=== PATIENT | female | born 1950 | race Caucasian/White ===

== ENCOUNTER 2022-09-14 11:56 | Outpatient (CLI) | payer MEDICARE, BC ==
--- NOTE | 2022-09-14 13:28 | XRAY Report ---
PROCEDURE: Chest 2 View X-Ray INDICATIONS: LUNG CA TECHNIQUE: 2 views of the chest were acquired. COMPARISON: None. FINDINGS: Surgical changes and devices: None. Lungs and pleura: Moderate effusion. Patchy opacities are noted in the right upper lobe. Left lung is clear. Mediastinum: Mediastinal contours are normal. Heart size is normal. Bones and chest wall: No suspicious bony abnormalities. Soft tissues appear unremarkable. IMPRESSION: Moderate right effusion with patchy upper lobe opacities. Underlying mass cannot be excluded recommen d interval follow-up after resolution of effusion. Reviewed by: Josselyn Ramos MD on 09/14/2022 1:26 PM PDT Approved by: Josselyn Ramos MD on 09/14/2022 1:26 PM PDT Station ID: [id number]
== END 2022-09-14 11:57 | disposition home or self-care (01) ==
LOC: DI 11:56
PROVIDERS: ATTEND Physician Assistant Medical
DX: C21.1 Malignant neoplasm of anal canal (principal); C78.01 Secondary malignant neoplasm of right lung; G89.3 Neoplasm related pain (acute) (chronic); J90 Pleural effusion, not elsewhere classified

== ENCOUNTER 2022-10-22 14:29 | Emergency (ER) | payer MEDICARE, BC ==
[2022-10-22] MEDS ORDERED: ONDANSETRON 4 MG/2 ML VIAL IVP STA ×2 (14:56→17:31)
[2022-10-22] MEDS ORDERED: HYDROmorphone 1 MG/ML CARPUJECT IVP STA ×2 (14:56→17:31)
[2022-10-22] MEDS ORDERED: SODIUM CHLORIDE 0.9% 1,000 ML IV STA (14:56)
--- NOTE | 2022-10-22 15:15 | ED Physician Documentation ---
History of Present Illness - Stated complaint Stated Complaint: VOMITING, LOWER RT ABD PX - Chief complaint Chief Complaint: General - History obtained from History obtained from: Patient - Additonal information Additional information: Patient is a 71-year-old female with a Metastatic rectal cancer presenting for evaluation of worsening right-sided chest pain radiating to the back for the past 2 weeks along with continued nausea and vomiting which have also been for the past 2 weeks. She recently completed one round of radiation therapy which helped her with pain for 2 days but the pain has again returned. She is followed through [facility] for her oncology care.She was seen by the palliative team yesterday but due to feeling too weak she was not actually able to complete that appointment and she was sent to the clinic for IV fluids, antiemetics and pain control.She has been prescribed hydromorphone, tramadol as well as Zofran and Compazine. She tried taking 2 doses of her Compazine today but vomited both of those up.She did not try taking her Zofran. She reports continued feelings of shortness of breath which been ongoing for the past 6 to 8 weeks and unchanged. She is intermittently having thoracentesis with the last one was 3 weeks ago. She has not had a bowel movement in 3 weeks. She has an ostomy.She denies abdominal pain.She was started on MiraLAX by the palliative team yesterday.She has not required any recent blood transfusions. Review of Systems Constitutional: denies: Fever Cardiac: reports: Chest pain / pressure (R sided) Respiratory: reports: Dyspnea GI: reports: Nausea, Vomiting. denies: Abdominal Pain, Diarrhea : denies: Dysuria Neurologic: reports: Generalized weakness PD PAST MEDICAL HISTORY - Past Medical History Past Medical History: Yes Cardiovascular: None Respiratory: Other Neuro: None Endocrine/Autoimmune: HyPOthyroidism GI: Other [employer]ING [employer]PER[employer]: None : None HEENT: None Psych: None Musculoskeletal: None Derm: None Other Past Medical History: anal cancer w/mets to lungs. ileostomy - Past Surgical History Past Surgical History: Yes General: Other Ortho: Other /FLANGING [employer] OPERATOR: Hysterectomy - Present Medications Home Medications: Ambulatory Orders Medication Instructions Recorded Confirmed Amox/Clav 875/125 [Augmentin] 1 each PO Q12H #14 tablet 10/22/22 Azithromycin [Zithromax] 1 tab PO DAILY #6 tablet 10/22/22 HYDROcod/ACETAM 5/325 [Kite 5/325] 1 tab PO Q4HR PRN 10/22/22 10/22/22 HYDROmorphone [Dilaudid] 2 mg PO Q4H 10/22/22 10/22/22 LORazepam [Ativan] 0.5 mg PO BID 10/22/22 10/22/22 Levothyroxine Sodium 75 mcg PO DAILY 10/22/22 10/22/22 [Levothyroxine] Ondansetron Odt [Zofran Odt] 4 mg TL Q6H PRN 10/22/22 10/22/22 Prochlorperazine [Compazine] 5 mg PO Q6H 10/22/22 10/22/22 Tolterodine [Detrol LA] 2 mg PO BID 10/22/22 10/22/22 Tramadol HCl 50 mg PO Q4HR PRN 10/22/22 10/22/22 - Allergies Allergies/Adverse Reactions: Allergies Allergy/AdvReac Type Severity Reaction Status Date / Time codeine AdvReac Unknown Verified 10/22/22 14:42 - Social History Does the pt smoke?: No Smoking Status: Never smoker Does the pt drink ETOH?: No Does the pt have substance abuse?: No - Immunizations Immunizations are current?: Yes - POLST Patient has POLST: No PD ED PE NORMAL - General General: Alert and oriented X 3, No acute distress, Well developed/nourished - HEENT HEENT: Atraumatic - Neck Neck: Supple, no meningeal sign - Cardiac Cardiac: No murmur, Other - Respiratory Respiratory: No respiratory distress (Tachycardic, regular rhythm), Other (Diminished breath sounds on the right) - Abdomen Abdomen: Normal bowel sounds, Soft, Non tender, Non distended, Other (Ostomy on the mid left abdomen) - Derm Derm: Warm and dry - Extremities Extremities: No edema - Neuro Neuro: Normal speech Results - Vitals Vitals: Vital Signs - 24 hr 10/22/22 10/22/22 10/22/22 14:30 16:41 18:00 Temperature 37.1 C Heart Rate 125 H 104 H 104 H Respiratory 19 23 18 Rate Blood Pressure 115/86 H 135/77 H 134/68 H O2 Saturation 97 98 94 10/22/22 19:51 Temperature 36.9 C Heart Rate 107 H Respiratory 22 Rate Blood Pressure 134/65 H O2 Saturation 95 Oxygen O2 Source Room air - EKG (time done) 1523 EKG releavant findings:: EKG personally interpreted by author of this note. Relevant findings are: Rate 109, sinus tachycardia, QTc 429, no STEMI Rate: Rate (enter#) (109) Rhythm: Sinus tachycardia Intervals: No: Prolonged QT Ischemia: No: ST elevation c/w ischemia Compare to prior EKG: Old EKG unavailable - Labs Labs: Laboratory Tests 10/22/22 10/22/22 10/22/22 15:20 15:20 15:20 WBC 9.6 RBC 3.04 L Hgb 7.9 L Hct 24.3 L MCV 79.9 L MCH 26.0 L MCHC 32.5 RDW 17.1 H Plt Count 415 MPV 9.9 Neut # (Auto) 7.9 H Lymph # (Auto) 0.6 L Pinal # (Auto) 1.0 Eos # (Auto) 0.0 Baso # (Auto) 0.0 Absolute Nucleated RBC 0.00 Nucleated RBC % 0.0 PT 15.0 H INR 1.4 H Sodium 134 L Potassium 3.8 Chloride 98 L Carbon Dioxide 25 Anion Gap 11.0 BUN 17 Creatinine 0.8 Estimated GFR (MDRD) 71 L Glucose 118 H Calcium 9.4 Ferritin Total Bilirubin 0.6 AST 26 ALT 43 Alkaline Phosphatase 55 Total Protein 7.3 Albumin 2.6 L Globulin 4.7 H Albumin/Globulin Ratio 0.6 L Lipase 25 10/22/22 15:20 WBC RBC Hgb Hct MCV MCH MCHC RDW Plt Count MPV Neut # (Auto) Lymph # (Auto) Pinal # (Auto) Eos # (Auto) Baso # (Auto) Absolute Nucleated RBC Nucleated RBC % PT INR Sodium Potassium Chloride Carbon Dioxide Anion Gap BUN Creatinine Estimated GFR (MDRD) Glucose Calcium Ferritin 546.4 H Total Bilirubin AST ALT Alkaline Phosphatase Total Protein Albumin Globulin Albumin/Globulin Ratio Lipase PD Medical Decision Making - ED course Complexity details: reviewed results, re-evaluated patient, d/w patient, d/w family ED course: 1623 D/W Patient's oncologist, Dr. Pinto. She is very familiar with the patient. Reviewed evaluation today and she was able to see the chest x-ray which we had beamed over to the the [facility]. She is concerned that the opacification could be a mass and is recommending a CT chest without contrast (as patient has a contrast allergy). I also discussed her hemoglobin of 7.9 and how it has been downtrending since July on review of her outpatient records. She recommends adding on a ferritin level. She will follow-up with this level.She understands that we will have the images of the CT scan sent over to her and she plans to follow-up on this with the patient tomorrow. She will have close follow-up with her. She does not feel her sympto ms are infection in etiology. Pt is a 71 yo with metastatic rectal cancer presenting with generalized weakness, N/V, pain, SOA x weeks. She has been seen by her outpatient oncologist for these symptoms and also seen yesterday at [facility] for these symptoms. She is tachycardic but otherwise stable vital signs. Her abdominal exam is soft, nontender, non distended. She has not had much stool output recently and was started on miralax yesterday but her abdominal exam remained benign without signs of SBO. She has been prescribed pain and nausea medication as an outpatient but still has ongoing N/V. CBC and Chemistries obtained and reviewed. Pt is anemic. (Hgb yesterday 8.2, 9.6 in September, normal in Jul 2022). Pt denied blood/dark appearance in stools. Reviewed with her oncologist who will follow up. Chest XR obtained due to ongoing SOA which I reviewed and see a new opacification on the right not seen on prior XR here from September 2022. Also D/W with her oncologist who requested CT chest which was obtained and shows a fluid collection (6x6x7 cm) and opacities suggestive of pneumonia. Reviewed these findings with pt. SHe wanted to wait on starting antibiotics so Rx were sent to her pharmacy. Attempted to reach back out to her oncologist to review CT results but unable to reach her after hours. Pt initially had improvement in nausea with IV zofran but nausea came back and was given 2nd dose of IV zofran and IV compazine. HR improved with IV fluids. Pain better after IV dilaudid. Pt signed out to Dr. Sprague at shift change pending re evaluation of pt's N/V after compazine. Pt has been talking about being interested in hospice and not wanting to pursue aggressive treatments. Departure - Departure Disposition: 01 Home, Self Care Clinical Impression: Metastatic cancer, Anemia, Pleural effusion, right, Nausea & vomiting, CAP (community acquired pneumonia) Condition: Stable Instructions: ED Nausea Vomiting Follow-Up: ROSALINDA PINTO MD [Physician No Access] - Prescriptions: Amox/Clav 875/125 [Augmentin] 1 each PO Q12H #14 tablet Azithromycin [Zithromax] 1 tab PO DAILY #6 tablet Comments: Chest x-ray showed an abnormality in your right lung, therefore we obtained a CT scan which shows the following: IMPRESSION: 1. 5.8 x 6.9 x 7.5 cm fluid collection corresponding with the x-ray abnormality in the right hemithorax. 2. Loculated pleural effusion posteriorly on the right. 3. Diffuse airspace opacities on the right consistent with pneumonia. There are findings concerning for pneumonia on your CT scan. There is also a fluid collection that appears different than prior ones that you have had. I have sent prescriptions for antibiotics to [facility] in [place]. Your labs show that you are anemic and your hemoglobin levels have slowly been downtrending since July. I did review these results with Dr. iPnto with your oncologist and She recommended checking a ferritin level which looks at iron. This level is not abnormally low and is actually high And so would recommend close follow-up with Dr. Pinto regarding your anemia As well as your CT scan. Please call her office tomorrow to arrange for close follow-up. Continue with your antinausea medications and your pain medications as prescribed. The ondansetron that you are prescribed is dissolvable and so this may work better for you than that the Prochlorperazine. Return to the emergency department at any time if develop any new or worsening symptoms. Discharge Date/Time: 10/22/22 19:58
--- NOTE | 2022-10-22 15:30 | XRAY Report ---
PROCEDURE: Chest 1 View X-Ray INDICATIONS: SOA TECHNIQUE: One view of the chest was acquired. COMPARISON: None. FINDINGS: Surgical changes and devices: None. Lungs and pleura: Progressive opacification in the right hemithorax Mediastinum: Mediastinal contours appear normal. Heart size is normal. Bones and chest wall: No suspicious bony lesions. Overlying soft tissues appear unremarkable. IMPRESSION: Progressive right hemithorax opacification. While this could represent infection or inflammation, rec ommend short interval imaging follow-up to document resolution and exclude presence of underlying mas s lesion. Reviewed by: Josselyn Ramos MD on 10/22/2022 3:29 PM PDT Approved by: Josselyn Ramos MD on 10/22/2022 3:29 PM PDT Station ID: [id number]
[2022-10-22 15:35] LABS: BASOPHILS % (AUTO) 0.4 %; EOSINOPHILS % (AUTO) 0.1 %; HCT - HEMATOCRIT 24.3 % (37.0-47.0); HGB - HEMOGLOBIN 7.9 g/dL (12.0-16.0); LYMPHOCYTES # (AUTO) 0.6 10^3/uL (1.5-3.5); LYMPHOCYTES % (AUTO) 6.3 %; MEAN CORPUSCULAR HGB CONC 32.5 g/dL (32.0-36.0); MEAN CORPUSCULAR VOLUME 79.9 fL (81.0-99.0); MEAN PLATELET VOLUME 9.9 fL (7.9-10.8); MONOCYTES % (AUTO) 10.7 %; NEUTROPHILS # (AUTO) 7.9 10^3/uL (1.5-6.6); NEUTROPHILS % (AUTO) 81.5 %; PLT - PLATELET COUNT 415 10^3/uL (130-450); RED BLOOD COUNT 3.04 10^6/uL (4.20-5.40); RED CELL DISTRIBUTION WIDTH 17.1 % (12.0-15.0); WHITE BLOOD COUNT 9.6 x10^3/uL (4.8-10.8)
[2022-10-22 15:47] LABS: ALBUMIN 2.6 g/dL (3.2-5.5); ALBUMIN/GLOBULIN RATIO 0.6 (1.0-2.2); BILIRUBIN,TOTAL 0.6 mg/dL (0.2-1.0); CALCIUM 9.4 mg/dL (8.5-10.3); CREATININE 0.8 mg/dL (0.4-1.0); POTASSIUM 3.8 mmol/L (3.5-5.0); TOTAL PROTEIN 7.3 g/dL (6.7-8.2)
[2022-10-22 15:57] LABS: INR 1.4 (0.8-1.2)
--- NOTE | 2022-10-22 17:14 | CT Report ---
PROCEDURE: CHEST WO INDICATIONS: R lung mass? TECHNIQUE: Noncontrast 1mm axial images were acquired from the pulmonary apices to the posterior costophrenic an gles. Axial 5 mm soft tissue kernel reconstructions were performed as well as 8 mm axial MIP and cor onal and sagittal 5 mm reformations. For radiation dose reduction, the following was used: automate d exposure control, adjustment of mA and/or kV according to patient size. COMPARISON: Chest x-ray dated 10/22/2022 FINDINGS: Image quality: Excellent. Lungs and pleura: No pleural effusions. No pneumothorax. No suspicious pulmonary nodules which requi re follow up. A pleural effusion which appears loculated is seen in the right midlung posteriorly. Th ere is probable fluid in the fissure measures 13 Hounsfield units and measures 5.8 x 6.9 x 7.5 cm. Th ere is decreased volume in the right hemithorax. Mediastinum: Heart size is normal. No pericardial effusions. No mediastinal adenopathy by size criter ia. No large vessel abnormality. Chest wall and lower neck: Thyroid is unremarkable. No axillary or supraclavicular adenopathy by size . Bones: No aggressive osseous abnormality. Upper Abdomen: Unremarkable. IMPRESSION: 1. 5.8 x 6.9 x 7.5 cm fluid collection corresponding with the x-ray abnormality in the right hemithor ax. 2. Loculated pleural effusion posteriorly on the right. 3. Diffuse airspace opacities on the right consistent with pneumonia. Reviewed by: Canelo Jensen on 10/22/2022 5:13 PM PDT Approved by: Canelo Jensen on 10/22/2022 5:13 PM PDT Station ID: [id number]
[2022-10-22] MEDS ORDERED: PROCHLORPERAZINE 10 MG/2 ML VIAL IVP STA (17:56)
[2022-10-22] MEDS ORDERED: METOCLOPRAMIDE 10 MG/2 ML VIAL IVP STA (18:31)
--- NOTE | 2022-10-22 19:40 | ED Physician Documentation ---
ED Addendum - Addendum Addendum: 10/22/22 19:39 Patient signed out to me by Dr. Pena at shift change pending p.o. challenge. She had received multiple rounds of antinausea medications including 2 doses of IV Zofran, 1 dose each of IV Compazine and Reglan. At this point she is feeling better, still really has not had much to drink but request discharge. I discussed with her that she would actually fit criteria for observation for intractable vomiting but she would like to go home. Disposition: Discharged Condition: Stable
[2022-10-22 19:52] VITALS: BP 134/65
== END 2022-10-22 19:58 | disposition home or self-care (01) ==
LOC: ED 14:29
DX: C20 Malignant neoplasm of rectum (principal); C79.9 Secondary malignant neoplasm of unspecified site; D63.0 Anemia in neoplastic disease; J90 Pleural effusion, not elsewhere classified; J18.9 Pneumonia, unspecified organism
CPT/HCPCS: 36415; 71045; 71250; 80053; 82728; 83690; 85025; 85610; 93005; 96374; 96375; 96376; 99284; J1170; J2765

== ENCOUNTER 2022-11-10 10:37 | Outpatient (CLI) | payer MEDICARE, BC ==
--- NOTE | 2022-11-10 16:36 | XRAY Report ---
PROCEDURE: Chest 2 View X-Ray INDICATIONS: HISTORY OF RECTAL CANCER TECHNIQUE: 2 views of the chest were acquired. COMPARISON: 10/22/2022 FINDINGS: Surgical changes and devices: None. Lungs and pleura: Oval opacities in right upper and lower lung cabrera are seen with elevation of rig ht hemidiaphragm consistent with previous CT finding of partially loculated right-sided pleural effus ion with fluid extending to oblique fissure. Adjacent atelectasis/infiltrate in right lung cabrera are seen. Left lung is clear. No pneumothorax. Mediastinum: Mediastinal contours appear normal. Heart size is normal. Bones and chest wall: No suspicious bony lesions. Overlying soft tissues appear unremarkable. IMPRESSION: Suggestion of persistent partially loculated right-sided pleural effusion with adjacent right lung at electasis. No pneumothorax. Left lung is clear. Reviewed by: Ang Bowers MD on 11/10/2022 4:35 PM PDT Approved by: Ang Bowers MD on 11/10/2022 4:35 PM PDT Station ID: [id number]
== END 2022-11-10 10:38 | disposition home or self-care (01) ==
LOC: DI 10:37
PROVIDERS: ATTEND Internal Medicine Hematology & Oncology
DX: C21.1 Malignant neoplasm of anal canal (principal)